=== PATIENT | female | born 1965 | race American Indian/Alaskan Native ===

== ENCOUNTER 2017-07-16 13:02 | Emergency (ER) | payer OTHER ==
[2017-07-16 13:03] VITALS: BMI 38.4
[2017-07-16 13:17] VITALS: TEMP 98.6
[2017-07-16 13:25] VITALS: RESP 18
[2017-07-16] MEDS ORDERED: MethylPREDNISolone 40 mg Vial IM STA (13:49)
--- NOTE | 2017-07-16 13:54 | ED PDOC ---
Arrival/HPI - General Historian: Patient - History of Present Illness Time/Duration: Prior to Arrival - General Chief Complaint: Allergic Reaction Time Seen by Provider: 07/16/17 13:27 - History of Present Illness Narrative History of Present Illness (Text): 07/16/17 13:52 51 F history of allergies to chickpeas and sesame seeds presents with complaints of nausea, vomiting, tingling and burning of lips and tongue after accidentally consuming a sandwich which had hummus (chickpeas and sesame seeds) . Patient states she immediately took benadryl. After consuming she experienced several bouts of vomiting which is improving. Patient denies shortness of breath , respiratory distress, difficulty speaking, difficulty swallowing, tongue swelling, eye itchiness, rash, chest pain, palpitations, dizziness. (Karl Mccarthy) Past Medical History - Provider Review Nursing Documentation Reviewed: Yes - Infectious Disease Hx of Infectious Diseases: None - Tetanus Immunization Tetanus Immunization: >10 years Ago - Reproductive Menopause: Yes - Cardiac Hx Cardiac Disorders: No - Pulmonary Hx Respiratory Disorders: Yes Hx Asthma: Yes - Neurological Hx Neurological Disorder: No - HEENT Hx HEENT Disorder: No - Renal Hx Renal Disorder: No - Endocrine/Metabolic Hx Endocrine Disorders: Yes Hx Diabetes Mellitus Type 2: Yes - Hematological/Oncological Hx Blood Disorders: No - Integumentary Hx Dermatological Disorder: No - Musculoskeletal/Rheumatological Hx Musculoskeletal Disorders: No - Gastrointestinal Hx Gastrointestinal Disorders: No - Genitourinary/Gynecological Hx Genitourinary Disorders: Yes (HSV2) - Psychiatric Hx Depression: No Hx Emotional Abuse: No Hx Physical Abuse: No Hx Substance Use: No - Surgical History Hx Section: Yes Hx Dilation and Curettage: Yes Hx Orthopedic Surgery: Yes (left knee) Other/Comment: ovrian cyst, hernia - Anesthesia Hx Anesthesia: Yes Hx Anesthesia Reactions: No Hx Malignant Hyperthermia: No - Suicidal Assessment Feels Threatened In Home Enviroment: No Family/Social History - Physician Review Nursing Documentation Reviewed: Yes Family/Social History: Other (non-contributory) Smoking Status: Former Smoker Hx Alcohol Use: Yes Hx Substance Use: No Hx Substance Use Treatment: No Allergies/Home Meds Allergies/Adverse Reactions: Allergies chickpea Allergy (Uncoded 11/25/14 09:30) VOMITING sesame seeds Allergy (Uncoded 11/25/14 09:30) VOMITING Home Medications: Home Meds Medication Instructions Recorded Confirmed Albuterol Sulfate [Ventolin Hfa] 0.09 mg IH PRN PRN 04/29/13 11/25/14 Review of Systems - Physician Review All systems were reviewed & negative as marked: Yes - Review of Systems Constitutional: Normal. absent: Fatigue, Fevers Eyes: Normal. absent: Vision Changes ENT: Normal. absent: Hearing Changes, Sore Throat, Rhinorrhea Respiratory: Normal. absent: SOB, Cough, Wheezing Cardiovascular: Normal. absent: Chest Pain, Palpitations Gastrointestinal: Nausea, Vomiting. absent: Abdominal Pain, Diarrhea Genitourinary Female: absent: Dysuria Musculoskeletal: Normal. absent: Neck Pain Neurological: Normal. absent: Headache, Dizziness Endocrine: Normal. absent: Diaphoresis Psychiatric: Normal. absent: Anxiety Physical Exam Vital Signs Reviewed: Yes Temperature: Afebrile Blood Pressure: Hypertensive Pulse: Regular Respiratory Rate: Normal Appearance: Positive for: Well-Appearing, Non-Toxic, Comfortable Pain Distress: None Mental Status: Positive for: Alert and Oriented X 3 Finger Stick Blood Glucose: 287 - Systems Exam Head: Present: Atraumatic, Normocephalic Pupils: Present: PERRL Extroacular Muscles: Present: EOMI Conjunctiva: Present: Normal Mouth: Present: Moist Mucous Membranes Neck: Present: Normal Range of Motion Respiratory/Chest: Present: Clear to Auscultation. No: Good Air Exchange, Accessory Muscle Use Cardiovascular: Present: Regular Rate and Rhythm, Normal S1, S2. No: Murmurs Abdomen: Present: Tenderness, Normal Bowel Sounds. No: Distention Upper Extremity: Present: Normal Inspection. No: Edema Lower Extremity: Present: Normal Inspection. No: Edema Neurological: Present: GCS=15, CN II-XII Intact, Speech Normal Skin: Present: Warm, Normal Color. No: Rashes Psychiatric: Present: Alert, Oriented x 3, Normal Insight, Normal Concentration Vital Signs Temp Pulse Resp BP Pulse Ox 07/16/17 16:40 86 18 150/85 99 07/16/17 15:12 79 18 158/86 H 98 07/16/17 13:25 98.6 F 88 18 161/96 H 98 07/16/17 13:12 98.6 F 88 16 161/96 H 97 Medical Decision Making Re-evaluation Time: 16:00 Reassessment Condition: Improving,but remains with symptoms ED Course and Treatment: Patient Seen With Resident: In agreement with resident note which contains more details about the patient. Patient was seen and evaluated with resident. Came up with plan and treatment together. A 51 year old female with allergic reaction. Additional HPI as noted by resident. Will give patient Zofran, Solumedrol and Pepcid. (Duong Caldera) 07/16/17 13:56 Will administer, Solumedrol, Pepcid, Zofran -Patient refused to take solumedrol. Patient is non compliant with medications as she does not like to take medications. Patient wanted to leave and not stay in the hospital. Discussed with patient regarding her high blood pressure reading however she states it is not normally elevated. Patient was instructed to follow up with her PMD regarding the finding. (Karl Mccarthy) - Lab Interpretations Lab Results: Lab Results 07/16/17 13:24: POC Glucose (mg/dL) 287 H - Medication Orders Current Medication Orders: Discontinued Medications Famotidine (Pepcid) 40 mg PO STAT STA Stop: 07/16/17 13:50 Last Admin: 07/16/17 14:06 Dose: 40 mg Methylprednisolone (Solu-Medrol) 125 mg IM STAT STA Stop: 07/16/17 13:58 Last Admin: 07/16/17 14:10 Dose: Not Given Non-Admin Reason: Patient Refused Ondansetron HCl (Zofran Inj) 4 mg IM STAT STA Stop: 07/16/17 13:50 Last Admin: 07/16/17 14:06 Dose: 4 mg IM Administration Charges Document 07/16/17 14:06 SS (Rec: 07/16/17 14:10 SS [id number]) Injection Site MAR Injection Site Left Deltoid Charges for Administration # of IM Administrations 1 Disposition/Present on Arrival - Present on Arrival Any Indicators Present on Arrival: No History of DVT/PE: No History of Uncontrolled Diabetes: No Urinary Catheter: No History of Decub. Ulcer: No History Surgical Site Infection Following: Orthopedic Procedures - Disposition Have Diagnosis and Disposition been Completed?: Yes Disposition Time: 16:25 Patient Plan: Discharge - Disposition Diagnosis: Allergic reaction Disposition: HOME/ ROUTINE Condition: FAIR Discharge Instructions (ExitCare): Food Allergy Additional Instructions: Ms. Queen, thank you for letting us take care of you today. You were treated for your allergic reaction after consuming hummus (chick peas and sesame seeds) The emergency medical care you received today was directed at your acute symptoms. If you were prescribed any medication, please fill it and take as directed. It may take several days for your symptoms to resolve. Return to the Emergency Department if your symptoms worsen, do not improve, or if you have any other problems. Please contact your doctor or call one of the physicians/clinics you have been referred to that are listed on the Patient Visit Information form that is included in your discharge packet. Bring any paperwork you were given at discharge with you along with any medications you are taking to your follow up visit. Our treatment cannot replace ongoing medical care by a primary care provider (PCP) outside of the emergency department. Thank you for allowing the [facility] team to be part of your care today. If you had an X-Ray or CT scan: A Radiologist will review the ED reading if any change in treatment is needed we will contact you. If you had a blood, urine, or wound culture: It will take several days for the results, if any change in treatment is needed we will contact you. If you had an STI test: It will take 48 hours for the results. Please call after 1 week if you have not heard back. Referrals: Yvette Sauceda DO [Primary Care Provider] - Follow up with primary Forms: [employer] (Sami)
[2017-07-16 17:09] VITALS: BP 150/85; PULSE 86; O2SAT 99
== END 2017-07-16 17:23 | disposition home or self-care (01) ==
LOC: ED 13:02
DX: T78.1XXA Other adverse food reactions, not elsewhere classified, initial encounter (principal); X58.XXXA Exposure to other specified factors, initial encounter; E11.9 Type 2 diabetes mellitus without complications
CPT/HCPCS: 82948; 96372; 99283; J2405

== ENCOUNTER 2017-08-19 19:15 | Emergency (ER) | payer OTHER ==
[2017-08-19 19:19] VITALS: BMI 37.7
[2017-08-19 19:52] VITALS: TEMP 98.1
[2017-08-19 20:10] LABS: EOS % 0.5 % (1.5-5.0); GRAN # 3.91 (1.4-6.5); GRAN % 63.7 % (50.0-68.0); HEMOGLOBIN 13.3 g/dL (12.0-16.0); LYMPH # 1.8 (1.2-3.4); MEAN CELL VOLUME 80.9 fl (80.0-105.0); MEAN CORPUSCULAR HEMOGLOBIN 26.8 pg (25.0-35.0); MEAN CORPUSCULAR HGB CONC 33.1 g/dl (31.0-37.0); MONO # 0.4 (0.1-0.6); MONO % 6.8 % (1.0-6.0); RBC 4.97 10^6/uL (3.5-6.1); RED CELL DISTRIBUTION WIDTH 12.3 % (11.5-14.5); WHITE BLOOD COUNT 6.1 10^3/ul (4.5-11.0)
[2017-08-19 20:23] LABS: PROTHROMBIN TIME 11.2 SECONDS (9.4-12.5)
[2017-08-19 20:24] LABS: D DIMER < 200 ng/mL (0-243); INR 0.98 (0.93-1.08); PARTIAL THROMBOPLASTIN TIME 26.9 Seconds (25.1-36.5)
[2017-08-19 20:31] LABS: TROPONIN I < 0.01 ng/mL
[2017-08-19 20:32] LABS: ALB/GLOB RATIO 1.2 (1.1-1.8); ALBUMIN 4.2 g/dL (3.0-4.8); ALT/SGPT 31 U/L (7-56); AST/SGOT 20 U/L (14-36); BLOOD UREA NITROGEN 14 mg/dL (7-21); CALCIUM 9.2 mg/dL (8.4-10.5); GFR AFRICAN-AMERICAN > 60; GFR NON-AFRICAN AMERICAN > 60
[2017-08-19] MEDS ORDERED: Insulin Regular 1 UNITS/0.01 ML ML IVP STA (20:32)
--- NOTE | 2017-08-19 20:53 | ED PDOC ---
Arrival/HPI - General Chief Complaint: High Blood Pressure Time Seen by Provider: 08/19/17 19:25 Historian: Patient - History of Present Illness Narrative History of Present Illness (Text): 08/19/17 20:47 51yo female with pmhx of hypertension and diabetes who was bib EMS for complaint of sharp left sided neck pain that radiates to her left arm and chest since last night. Notes that neck pain is worse with lateral bending of the neck. States pain started when she woke up. States she took Ibuprofen 800mg with temporary relieve. Denies fever, chills, SOB, rash, nuchal ridgity, nausea , vomiting, diaphoresis, SOB, calf pain, LE edema, sick contact, focal weakness , any other complaint. Past Medical History - Provider Review Nursing Documentation Reviewed: Yes - Infectious Disease Hx of Infectious Diseases: None - Tetanus Immunization Tetanus Immunization: >10 years Ago - Cardiac Hx Cardiac Disorders: No - Pulmonary Hx Respiratory Disorders: Yes Hx Asthma: Yes - Neurological Hx Neurological Disorder: No - HEENT Hx HEENT Disorder: No - Renal Hx Renal Disorder: No - Endocrine/Metabolic Hx Endocrine Disorders: Yes Hx Diabetes Mellitus Type 2: Yes - Hematological/Oncological Hx Blood Disorders: No - Integumentary Hx Dermatological Disorder: No - Musculoskeletal/Rheumatological Hx Musculoskeletal Disorders: No - Gastrointestinal Hx Gastrointestinal Disorders: No - Genitourinary/Gynecological Hx Genitourinary Disorders: Yes (HSV2) - Psychiatric Hx Depression: No Hx Emotional Abuse: No Hx Physical Abuse: No Hx Substance Use: No - Surgical History Hx Section: Yes Hx Dilation and Curettage: Yes Hx Orthopedic Surgery: Yes (left knee) Other/Comment: ovrian cyst, hernia - Anesthesia Hx Anesthesia: Yes Hx Anesthesia Reactions: No Hx Malignant Hyperthermia: No - Suicidal Assessment Feels Threatened In Home Enviroment: No Family/Social History - Physician Review Nursing Documentation Reviewed: Yes Family/Social History: Unknown Family HX Smoking Status: Former Smoker Hx Alcohol Use: Yes Hx Substance Use: No Hx Substance Use Treatment: No Allergies/Home Meds Allergies/Adverse Reactions: Allergies chickpea Allergy (Uncoded 11/25/14 09:30) VOMITING sesame seeds Allergy (Uncoded 11/25/14 09:30) VOMITING Home Medications: Home Meds Medication Instructions Recorded Confirmed Albuterol Sulfate [Ventolin Hfa] 0.09 mg IH PRN PRN 04/29/13 11/25/14 Review of Systems - Physician Review All systems were reviewed & negative as marked: Yes - Review of Systems Constitutional: Normal Eyes: Normal ENT: Normal Respiratory: Normal Cardiovascular: Chest Pain Gastrointestinal: Normal Genitourinary Female: Normal Musculoskeletal: Neck Pain Skin: Normal Neurological: Normal Endocrine: Normal Hemo/Lymphatic: Normal Psychiatric: Normal Physical Exam Vital Signs Reviewed: Yes Vital Signs Temp Pulse Resp BP Pulse Ox 08/19/17 20:40 91 H 18 167/93 H 95 08/19/17 19:51 98.1 F 88 17 139/107 H 97 Temperature: Afebrile Blood Pressure: Hypertensive Pulse: Regular Respiratory Rate: Normal Appearance: Positive for: Well-Appearing, Non-Toxic, Comfortable Pain Distress: None Mental Status: Positive for: Alert and Oriented X 3 - Systems Exam Head: Present: Atraumatic, Normocephalic Pupils: Present: PERRL Extroacular Muscles: Present: EOMI Conjunctiva: Present: Normal Mouth: Present: Moist Mucous Membranes Neck: Present: Normal Range of Motion (With pain on lateral bend worse on the left side), Paraspinal Tenderness (LEft side). No: MIDLINE TENDERNESS Respiratory/Chest: Present: Clear to Auscultation, Good Air Exchange. No: Respiratory Distress, Accessory Muscle Use Cardiovascular: Present: Regular Rate and Rhythm, Normal S1, S2. No: Murmurs Abdomen: No: Tenderness, Distention, Peritoneal Signs Back: Present: Normal Inspection Upper Extremity: Present: Normal Inspection. No: Cyanosis, Edema Lower Extremity: Present: Normal Inspection. No: Edema Neurological: Present: GCS=15, CN II-XII Intact, Speech Normal Skin: Present: Warm, Dry, Normal Color. No: Rashes Psychiatric: Present: Alert, Oriented x 3, Normal Insight, Normal Concentration Medical Decision Making ED Course and Treatment: 08/20/17 00:46 PT presented for left neck pain that radiates to her left arm and chest. Her pain improved in ED with medication. First and second CE was negative. Her BS increased with Insulin in ED. Cervical and CXR - no acute finding and CAD Pt's pain was reproducible, likely Musculoskeletal. All result was DW the pt. She will be DC home with a rx of Naprosyn, Lidoderm, and flexeril. Advised to apply warm compress to area and f/u with her PMD. TRT ED for any new or worsening symptoms - Lab Interpretations Lab Results: 08/19/17 20:02 08/19/17 20:02 Lab Results 08/20/17 00:08: Lactate Dehydrogenase 457, Total Creatine Kinase 77, Troponin I < 0.01 08/19/17 22:54: Urine Color Light yellow, Urine Appearance Clear, Urine pH 6.0, Ur Specific [place] 1.010, Urine Protein Negative, Urine Glucose (UA) >=1000, Urine Ketones Negative, Urine Blood Negative, Urine Nitrate Negative, Urine Bilirubin Negative, Urine Urobilinogen 0.2, Ur Leukocyte Esterase Negative 08/19/17 21:38: POC Glucose (mg/dL) 263 H 08/19/17 20:49: POC Glucose (mg/dL) 317 H 08/19/17 20:02: Sodium 140, Potassium 4.0, Chloride 99, Carbon Dioxide 30, Anion Gap 15, BUN 14, Creatinine 0.5 L, Est GFR ( Amer) > 60, Est GFR ( Non-Af Amer) > 60, Random Glucose 377 H*, Calcium 9.2, Magnesium 1.5 L, Total Bilirubin 0.4, AST 20, ALT 31, Alkaline Phosphatase 96, Lactate Dehydrogenase 489, Total Creatine Kinase 88, Troponin I < 0.01, Total Protein 7.7, Albumin 4.2 , Globulin 3.5, Albumin/Globulin Ratio 1.2 08/19/17 20:02: PT 11.2, INR 0.98, APTT 26.9, D-Dimer, Quantitative < 200 08/19/17 20:02: WBC 6.1, RBC 4.97, Hgb 13.3, Hct 40.2, MCV 80.9, MCH 26.8, MCHC 33.1, RDW 12.3, Plt Count 189, MPV 11.0, Gran % 63.7, Lymph % (Auto) 29.0, [place] % (Auto) 6.8 H, Eos % (Auto) 0.5 L, Baso % (Auto) 0.0, Gran # 3.91, Lymph # ( Auto) 1.8, [place] # (Auto) 0.4, Eos # (Auto) 0.0, Baso # (Auto) 0.00 - RAD Interpretation Radiology Orders: 08/19/17 19:39 CHEST TWO VIEWS (PA/LAT) [RAD] Stat 08/19/17 19:41 CERVICAL SPINE >18YR W/O[place] [RAD] Stat - Medication Orders Current Medication Orders: Discontinued Medications Cyclobenzaprine HCl (Flexeril) 10 mg PO STAT STA Stop: 08/19/17 19:43 Last Admin: 08/19/17 19:55 Dose: 10 mg Insulin Human Regular (Humulin R) 8 units IVP ONCE STA Stop: 08/19/17 20:33 Last Admin: 08/19/17 21:17 Dose: 6 units Comments: ED PA order. MAR Blood Glucose Document 08/19/17 21:17 SS (Rec: 08/19/17 21:17 SS [id number]) Blood Glucose Finger Stick Blood Glucose (70-120) 317 IVP Administration Document 08/19/17 21:17 SS (Rec: 08/19/17 21:17 SS [id number]) Charges for Administration # of IVP Administrations 1 Ketorolac Tromethamine (Toradol) 30 mg IVP STAT STA Stop: 08/19/17 19:43 Last Admin: 08/19/17 19:55 Dose: 30 mg MAR Pain Assessment Document 08/19/17 19:55 SS (Rec: 08/19/17 19:56 [email or web address] Pain Reassessment Is this a pain reassessment? No Sleep Is patient sleeping during reassessment? No Presence of Pain Presence of Pain Yes Location Upper or Lower Lower Pain Location Body Site Neck IVP Administration Document 08/19/17 19:55 SS (Rec: 08/19/17 19:56 [email or web address] Charges for Administration # of IVP Administrations 1 Disposition/Present on Arrival - Present on Arrival Any Indicators Present on Arrival: No History of DVT/PE: No History of Uncontrolled Diabetes: No Urinary Catheter: No History of Decub. Ulcer: No History Surgical Site Infection Following: Orthopedic Procedures - Disposition Have Diagnosis and Disposition been Completed?: Yes Diagnosis: Neck pain, Chest pain, Hyperglycemia Disposition: HOME/ ROUTINE Disposition Time: 00:55 Patient Plan: Discharge Patient Problems: Current Active Problems Problem Status Onset Chest pain Acute Neck pain Acute Condition: STABLE Discharge Instructions (ExitCare): Neck Pain, Chest Pain (ED) Additional Instructions: Follow up with your Doctor Return to ED for any new symptoms Prescriptions: Cyclobenzaprine [Cyclobenzaprine HCl] 10 mg PO BID #10 tab Lidocaine 5% [Lidoderm] 1 patch TOP BID #10 patch Naproxen [Naprosyn] 500 mg PO BID #20 tab Referrals: Yvette Sauceda DO [Primary Care Provider] - Follow up with primary Forms: [employer] (I[place]ic)
[2017-08-19 23:00] LABS: URINE BILIRUBIN NEGATIVE (NEGATIVE); URINE BLOOD NEGATIVE (NEGATIVE); URINE GLUCOSE (UA) >=1000 mg/dL (NEGATIVE); URINE LEUKOCYTE ESTERASE NEGATIVE Leu/uL (NEGATIVE); URINE PROTEIN NEGATIVE mg/dL (<30 mg/dL); URINE UROBILINOGEN 0.2 E.U./dL (<1 E.U./dL)
[2017-08-19 23:01] LABS: URINE APPEARANCE CLEAR (CLEAR); URINE COLOR LIGHT YELLOW (YELLOW)
[2017-08-20 00:46] LABS: TROPONIN I < 0.01 ng/mL
[2017-08-20 01:01] VITALS: BP 141/94; PULSE 82; RESP 20; O2SAT 96
--- NOTE | 2017-08-20 08:24 | RAD ---
HISTORY: chest pain COMPARISON: No prior. TECHNIQUE: Chest PA and lateral FINDINGS: LUNGS: No active pulmonary disease. PLEURA: No significant pleural effusion identified. No pneumothorax apparent. CARDIOVASCULAR: Normal. OSSEOUS STRUCTURES: No significant abnormalities. VISUALIZED UPPER ABDOMEN: Normal. OTHER FINDINGS: None. IMPRESSION: No active disease.
--- NOTE | 2017-08-20 08:36 | RAD ---
PROCEDURE: Cervical Spine Radiographs. HISTORY: Pain. COMPARISON: None. FINDINGS: BONES: Alignment maintained. No fracture. Dens Intact. DISC SPACES: Normal. SOFT TISSUES: Normal. No prevertebral soft tissue swelling. OTHER FINDINGS: None. IMPRESSION: Normal cervical spine radiographs
--- NOTE | 2017-08-20 08:42 | CARD ---
APPROVED REPORT EKG Measurement Heart [id number] <Conclusion> Normal sinus rhythm Septal infarct, age undetermined Possible Inferior infarct, age undetermined Abnormal ECG
== END 2017-08-20 01:04 | disposition home or self-care (01) ==
LOC: ED 19:15
DX: M54.2 Cervicalgia (principal); R07.9 Chest pain, unspecified; E11.65 Type 2 diabetes mellitus with hyperglycemia; I10 Essential (primary) hypertension; Z87.891 Personal history of nicotine dependence
CPT/HCPCS: 71046; 72050; 80053; 81003; 82550; 82948; 83615; 83735; 84484; 85025; 85378; 85610; 85730; 93005; 96374; 96375; 99284; J1885